=== PATIENT | female | born 1940 | race Caucasian/White ===

== ENCOUNTER 2019-03-15 02:52 | Emergency (ER) | payer MEDICARE, SELFPAY ==
[~2019-03-15] VITALS: Ht 165.1 cm; Wt 49.6 kg
[2019-03-15 03:36] LABS: BASO # 0.1 10^3/uL (0.0-0.2); BASO % 0.5 % (0.0-1.0); EOS # 0.2 10^3/uL (0.0-0.50); EOS % 1.7 % (0.0-3.0); HEMATOCRIT 39.5 % (36.0-47.0); HEMOGLOBIN 13.1 g/dl (12.0-15.5); LYMPH % 20.7 % (24.0-44.0); MEAN CORPUSCULAR HEMOGLOBIN 30.7 pg (27.0-33.0); MEAN CORPUSCULAR HGB CONC 33.2 g/dl (32.0-36.5); MEAN CORPUSCULAR VOLUME 92.5 fl (80.0-96.0); MONO # 0.7 10^3/uL (0.0-0.8); NEUTROPHILS # 6.8 10^3/uL (1.8-7.7); NEUTROPHILS % 69.8 % (36.0-66.0); PLATELET COUNT, AUTOMATED 190 10^3/uL (150-450); RED BLOOD COUNT 4.27 10^6/uL (4.00-5.40); WHITE BLOOD COUNT 9.8 10^3/uL (4.0-10.0)
[2019-03-15] MEDS ORDERED: PRESCAP PO (03:37)
[2019-03-15] MEDS ORDERED: ESTR3TA PO (03:38)
--- NOTE | 2019-03-15 04:13 | REPVR ---
EXAM: CT Head Without Contrast EXAM DATE/TIME: 03/15/2019 3:01 AM CLINICAL HISTORY: 78 years old, female; Injury or trauma; Fall; Initial encounter; Blunt trauma (contusions or hematomas); Consciousness not specified; Additional info: S/P head injury with confusion TECHNIQUE: Imaging protocol: Computed tomography images of the head without contrast. Radiation optimization: All CT scans at this facility use at least one of these dose optimization techniques: automated exposure control; mA and/or kV adjustment per patient size (includes targeted exams where dose is matched to clinical indication); or iterative reconstruction. COMPARISON: No relevant prior studies available. FINDINGS: Brain: There is moderate, diffuse parenchymal volume loss. The cortical/white matter interfaces are preserved throughout the brain. There is no evidence of intracranial hemorrhage. Ventricles: The ventricular system demonstrates moderate diffuse compensatory enlargement. Bones/joints: No acute fractures of the skull are identified. Sinuses: The visualized paranasal sinuses are clear. Mastoid air cells: The visualized mastoid air cells are clear. Soft tissues: Soft tissue swelling and a superficial defect in the soft tissues are noted in the left parietal region, consistent with a laceration and soft tissue contusion/hematoma. IMPRESSION: 1. Left parietal laceration and soft tissue contusion/hematoma. 2. No evidence of acute intracranial injury. Electronically signed by: Nesha Drake On 03/15/2019 04:12:51 AM
--- NOTE | 2019-03-15 04:23 | REPVR ---
EXAM: CT Cervical Spine Without Contrast EXAM DATE/TIME: 03/15/2019 3:01 AM CLINICAL HISTORY: 78 years old, female; Injury or trauma; Fall; Initial encounter; Blunt trauma; Additional info: S/P head injury with confusion TECHNIQUE: Imaging protocol: Computed tomography images of the cervical spine without contrast. Coronal and sagittal reformatted images were created and reviewed. Radiation optimization: All CT scans at this facility use at least one of these dose optimization techniques: automated exposure control; mA and/or kV adjustment per patient size (includes targeted exams where dose is matched to clinical indication); or iterative reconstruction. COMPARISON: No relevant prior studies available. FINDINGS: Vertebrae: There is 2 mm of anterolisthesis of C4 on C5. There is degenerative narrowing of the pre-dens space, with slight anterior subluxation of C2 relative to C1. There is no evidence of acute fracture. There is multilevel facet arthropathy. There is fusion of the right C2-C3 facet joint. There is prominent sclerosis and hypertrophy of the facet joints bilaterally at C3-C4 and C4-C5. Discs/Spinal canal/Neural foramina: There is degenerative disc disease at multiple levels. Prominent anterior endplate spurs and disc narrowing are noted at C5-C6 and C6-C7. There is mild central canal stenosis, mild left neural foraminal narrowing, and moderate right neural foraminal narrowing at C5-C6. There is mild central canal stenosis and moderate bilateral neural final narrowing at C6-C7. There is moderate right neural foraminal narrowing at C4-C5. There is mild left neural foraminal narrowing at C3-C4. Prevertebral Space: The prevertebral soft tissues appear normal. Soft tissues: Anterior longitudinal ligament calcifications are seen at C4-C5, C5-C6, and C6-7. A focus of calcification is seen within the supraspinatus tissues at the level of C7, probably calcium hydroxyapatite deposition. Lungs: Fibrotic changes are noted in the visualized right lung apex. IMPRESSION: 1. No fractures identified. 2. Slight anterolisthesis of C4 on C5, likely degenerative related to the advanced facet arthropathy at this level. 3. Degenerative narrowing of the pre-dens space with slight anterolisthesis of C2 relative to C1. 4. Multilevel degenerative disc disease, most prominent at C5-C6 and C6-C7. Electronically signed by: Nesha Drake On 03/15/2019 04:23:23 AM
[2019-03-15 04:41] LABS: ACETAMINOPHEN LEVEL < 2.0 UG/ML (10.0-30.0); ALBUMIN 3.9 GM/DL (3.2-5.2); ALT/SGPT 23 U/L (12-78); BILIRUBIN,DIRECT 0.2 MG/DL (0.0-0.2); BILIRUBIN,TOTAL 0.6 MG/DL (0.2-1.0); BLOOD UREA NITROGEN 29 MG/DL (7-18); CALCIUM LEVEL 8.5 MG/DL (8.8-10.2); CARBON DIOXIDE LEVEL 28 MEQ/L (21-32); CHLORIDE LEVEL 104 MEQ/L (98-107); CK-MB VALUE MASS 4.4 NG/ML (<3.6); CPK CREATINE PHOSPHOKINASE 166 U/L (26-192); CREATININE FOR GFR 1.15 MG/DL (0.55-1.30); ETHYL ALCOHOL (ETHANOL) < 0.003 % (0.000-0.010); GLOMERULAR FILTRATION RATE 48.6 (>39); GLUCOSE, FASTING 114 MG/DL (70-100); MB/CK RELATIVE INDEX 2.65 (< OR =4); POTASSIUM SERUM 4.2 MEQ/L (3.5-5.1); SALICYLATE LEVEL < 1.7 MG/DL (5.0-30.0); SODIUM LEVEL 140 MEQ/L (136-145); TOTAL PROTEIN 6.9 GM/DL (6.4-8.2); TROPONIN I < 0.02 NG/ML (< 0.10)
[2019-03-15 06:26] VITALS: O2SAT 98
--- NOTE | 2019-03-15 06:38 | ECGEPIP ---
[facility] - ED Test Date: 2019-03-15 Pat Name: SURY BEDOYA Department: Room: - Gender: Female [employer]: jing : 1940 Requested By: CORY Nava Order Number: [id number] Reading MD: Marylou Flores Measurements Intervals Rodman Rate: 57 P: 64 FL: 121 QRS: 51 QRSD: 85 T: 83 QT: 428 QTc: 417 Interpretive Statements SINUS BRADYCARDIA MINIMAL ST DEPRESSION NO PRIOR ECG FOR COMPARISON CLINICALLY CORRELATE Electronically Signed on 03-15-2019 6:37:38 EDT by Marylou Flores
[2019-03-15 07:52] VITALS: BP 143/68
--- NOTE | 2019-03-20 11:44 | REP ---
LEFT SHOULDER, COMPLETE: 03/15/2019. Technique: Three views were provided. Clinical history: Shoulder deformity. Findings: There is grade III AC joint separation of the clavicle with the clavicle elevated well above the superior margin of the acromion. No fracture of the clavicle or acromion. Remainder of the scapula intact. Humerus without fracture, subluxation. Ribs intact. Impression: 1. A grade III AC joint separation without visible fracture. ADDENDUM at the time of signature: The report is only now made available for my signature at this time. A wet reading was provided at the time of the examination. Electronically Signed by Homer Croft MD 03/21/2019 11:06 A
--- NOTE | 2019-03-20 11:47 | REP ---
AP PORTABLE CHEST: 03/15/2019. Clinical history: Altered mental status. Findings: Single-view chest shows the lungs hyperinflated. Emphysematous changes suggested. Apical pleuroparenchymal scarring, right greater than left. Grade III AC joint separation on that left side. Spine was intact. Visualized ribs intact. No cardiomegaly or edema. A tortuous aorta and some pulmonary artery hypertension, shows prominent pulmonary artery symmetric. Impression: 1. Findings with some COPD with hyperinflation, apical pleuroparenchymal scarring, pulmonary artery hypertension but no infiltrate, cardiomegaly or edema. 2. Grade III AC joint separation on the left. ADDENDUM at the time of signature: The report is only now made available for my signature at this time. A wet reading was provided at the time of the examination. Electronically Signed by Homer Croft MD 03/21/2019 11:06 A
== END 2019-03-15 08:15 | disposition home or self-care (01) ==
LOC: M ED 02:52
DX: S06.0X0A Concussion without loss of consciousness, initial encounter (principal); S01.01XA Laceration without foreign body of scalp, initial encounter; S43.102A Unspecified dislocation of left acromioclavicular joint, initial encounter; W10.8XXA Fall (on) (from) other stairs and steps, initial encounter; Y92.018 Other place in single-family (private) house as the place of occurrence of the external cause; Z79.899 Other long term (current) drug therapy
CPT/HCPCS: 12002; 36415; 70450; 71045; 72125; 73030; 80048; 80076; 82550; 82553; 84443; 84484; 85025; 93005; 93041; 94760; 99285; G0480